=== PATIENT | male | born 1955 | race Hispanic/Latino ===

== ENCOUNTER → 2020-01-12 | Outpatient (CLI) | payer OTHER, MEDICARE ==
[~2020-01-12] MED LIST: GLIM4TAB36 PO; METF-527 PO; REGADENOSON 0.4 MG/5 ML PF SYG IVP SCH
== END | disposition home or self-care (01) ==
LOC: SHCH 08:09
PROVIDERS: ATTEND Internal Medicine Cardiovascular Disease
DX: R06.09 Other forms of dyspnea (principal)
CPT/HCPCS: 78452; 93017; 96374; A9500 ×2; J2785

== ENCOUNTER → 2020-01-13 | Outpatient (CLI) | payer OTHER, MEDICARE ==
[~2020-01-13] MED LIST changes: -REGADENOSON 0.4 MG/5 ML PF SYG IVP SCH
== END | disposition home or self-care (01) ==
LOC: SHCH 10:37
PROVIDERS: ATTEND Internal Medicine Cardiovascular Disease
DX: R06.09 Other forms of dyspnea (principal)
CPT/HCPCS: 93306; 93356

== ENCOUNTER 2021-12-31 15:01 | Inpatient (IN) | payer OTHER, MEDICARE ==
[~2021-12-31] VITALS: Ht 170.2 cm; Wt 84.0 kg
[2021-12-31] VITALS (18 sets, daily range): BP systolic 136–179; BP diastolic 73–121
[2021-12-31 15:59] LABS: BASOPHILS % (AUTO) 0.4 % (0.0-5.0); EOSINOPHILS % (AUTO) 0.6 % (0.0-8.0); HEMATOCRIT 31.7 % (42-54); LYMPHOCYTES % (AUTO) 8.5 % (21.0-51.0); MEAN CORPUSCULAR HGB CONC 33.4 g/dL (32.0-36.0); MEAN CORPUSCULAR VOLUME 83.6 fL (79-99); MONOCYTES % (AUTO) 7.4 % (3.0-13.0); NEUTROPHILS % (AUTO) 82.4 % (40.0-77.0); PLATELET COUNT (AUTO) 348 K/uL (130-400); RED BLOOD CELL COUNT(AUTO) 3.79 MIL/uL (4.50-6.20); RED CELL DISTRIBUTION WIDTH 12.9 % (11.0-15.5); WHITE BLOOD COUNT (AUTO) 10.9 K/uL (4.8-10.8)
[2021-12-31 16:12] LABS: INR 0.93 (0.85-1.15); PROTHROMBIN TIME 10.2 SEC (9.6-11.6)
[2021-12-31 16:13] LABS: PARTIAL THROMBOPLASTIN TIME 27.6 SEC (26.3-35.5)
[2021-12-31] MEDS ORDERED: ZOSYN 3.375GM+NS 50ML 50 ML ONE (16:32)
[2021-12-31 16:33] LABS: ALBUMIN 3.2 g/dL (3.5-5.0); BILIRUBIN,TOTAL 0.4 mg/dL (0.2-1.0); CREATININE 1.8 mg/dL (0.5-1.5); TOTAL PROTEIN, SERUM 9.2 g/dL (6.0-8.3)
[2021-12-31] MEDS ORDERED: VANCOMYCIN 1G/250ML KIT 250 ML IV ONE (16:33)
[2021-12-31] MEDS ORDERED: 0.9%NACL 1000ML 1,000 ML IV ONE (16:36)
[2021-12-31] MEDS ORDERED: INSULIN HUMULIN R 100 UNIT/ML 3ML ONE (16:37)
[2021-12-31] MEDS: 0.9%NACL 1000ML 1,000 ML IV SCH ×2 (16:46→23:34)
[2021-12-31] MEDS: INSULIN HUMULIN R 100 UNIT/ML 3ML IV SCH ×2 (16:46→17:11)
[2021-12-31] MEDS ORDERED: VANCOMYCIN 1G VIAL IVPB ONE (17:00)
[2021-12-31] MEDS ORDERED: ZOSYN 3.375GM +NS 50ML IV SCH (17:00)
[2021-12-31] MEDS: VANCOMYCIN 500MG+NS 100ML 100 ML IV SCH (18:00)
[2021-12-31] MEDS ORDERED: RENAL DOSE IV SCH (18:00)
[2021-12-31] MEDS ORDERED: CEFEPIME HCL 2 GM VIAL IVP SCH (18:00)
[2021-12-31] MEDS ORDERED: VANCOMYCIN PROTOCOL PER PHARMACY IV SCH (18:30)
[2021-12-31] MEDS ORDERED: GUAIFENESIN-DM 200/20 MG 10 ML PO PRN (18:30)
[2021-12-31] MEDS ORDERED: ZOLPIDEM TARTRATE 5 MG TAB PO PRN (18:30)
[2021-12-31] MEDS ORDERED: NITROGLYCERIN 0.4 MG SL TAB SL PRN (18:30)
[2021-12-31] MEDS ORDERED: MAG/ALUM/SIMETH 30 ML UDCUP PO PRN (18:30)
[2021-12-31] MEDS ORDERED: ACETAMINOPHEN 325 MG TAB PO PRN ×2 (18:30)
[2021-12-31] MEDS ORDERED: BUPIVACAINE/PF 0.5% 30ML VIAL ONE (19:06)
[2021-12-31] MEDS ORDERED: LIDOCAINE HCL 1% MDV 50ML VIAL ONE (19:06)
[2021-12-31] MEDS ORDERED: FENTANYL CITRATE PF 50 MCG/1 ML 2ML VIAL ONE ×2 (19:23→19:36)
[2021-12-31] MEDS ORDERED: MIDAZOLAM HCL 1 MG/ML 2ML VIAL ONE (19:23)
[2021-12-31] MEDS ORDERED: PROPOFOL 1000 MG/100 ML 100 ML IV ONE (19:37)
[2021-12-31] MEDS ORDERED: ONDANSETRON 4MG INJ ONE (19:41)
[2021-12-31] MEDS ORDERED: LABETALOL 20MG SYG IV ONE (21:34)
[2021-12-31] MEDS ORDERED: LABETALOL 20MG SYG IV PRN (23:30)
[2021-12-31] MEDS ORDERED: HYDRALAZINE HCL 10 MG TABLET PO PRN (23:30)
[2021-12-31] MEDS: HYDROMORPHONE 0.5 MG SYG (0.5MG/0.5ML) IV PRN (23:43)
[2022-01-01] VITALS (9 sets, daily range): BP systolic 134–168; BP diastolic 71–87
[2022-01-01] MEDS ORDERED: DEXTROSE 50%-WATER 50 ML DISP.SYRIN IV PRN
[2022-01-01] MEDS ORDERED: GLUCAGON 1MG KIT 1 MG ML IM PRN
[2022-01-01] MEDS: HYDROMORPHONE 0.5 MG SYG (0.5MG/0.5ML) IV PRN ×2 (04:38→09:27)
[2022-01-01 04:48] LABS: BASOPHILS % (AUTO) 0.2 % (0.0-5.0); EOSINOPHILS % (AUTO) 0.7 % (0.0-8.0); HEMATOCRIT 27.1 % (42-54); LYMPHOCYTES % (AUTO) 10.7 % (21.0-51.0); MEAN CORPUSCULAR HEMOGLOBIN 27.6 pg (27.0-33.0); MEAN CORPUSCULAR HGB CONC 32.5 g/dL (32.0-36.0); MONOCYTES % (AUTO) 7.1 % (3.0-13.0); NEUTROPHILS % (AUTO) 80.4 % (40.0-77.0); PLATELET COUNT (AUTO) 283 K/uL (130-400); RED BLOOD CELL COUNT(AUTO) 3.19 MIL/uL (4.50-6.20); RED CELL DISTRIBUTION WIDTH 12.9 % (11.0-15.5)
[2022-01-01 04:59] LABS: INR 0.96 (0.85-1.15); PROTHROMBIN TIME 10.5 SEC (9.6-11.6)
[2022-01-01 05:01] LABS: PARTIAL THROMBOPLASTIN TIME 29.4 SEC (26.3-35.5)
[2022-01-01 05:06] LABS: ALBUMIN 2.4 g/dL (3.5-5.0); BILIRUBIN,TOTAL 0.3 mg/dL (0.2-1.0); CREATININE 1.4 mg/dL (0.5-1.5); MAGNESIUM 2.2 mg/dL (1.80-2.40); PHOSPHORUS 3.2 mg/dL (2.5-4.9); POTASSIUM 4.3 mmol/L (3.5-5.1); TOTAL PROTEIN, SERUM 7.2 g/dL (6.0-8.3)
[2022-01-01] MEDS: 0.9%NACL 1000ML 1,000 ML IV SCH ×3 (05:30→19:40)
[2022-01-01] MEDS: VANCOMYCIN 500MG+NS 100ML 100 ML IV SCH ×2 (05:30→17:18)
[2022-01-01] MEDS: INSULIN HUMULIN R 100 UNIT/ML 3ML SQ SCH ×4 (06:15→20:57)
[2022-01-01] MEDS: ENOXAPARIN SODIUM 40 MG/0.4 ML SYRINGE SQ SCH (09:26)
[2022-01-01] MEDS: FAMOTIDINE 20MG VIAL IV SCH (09:26)
[2022-01-01] MEDS: LISINOPRIL 10 MG TABLET PO SCH (09:26)
[2022-01-01] MEDS: ONDANSETRON 4MG INJ IV PRN (11:45)
[2022-01-01] MEDS: CEFEPIME HCL 2 GM VIAL IVP SCH ×2 (11:45→23:04)
[2022-01-01] MEDS: ACETAMINOPHEN 325 MG TAB PO PRN (11:46)
[2022-01-01] MEDS ORDERED: DIPH,PERTUSS(ACELL),TET VAC/PF 0.5 ML VIAL IM ONE (14:00)
[2022-01-01] MEDS: ACETAMINOPHEN WITH CODEINE 1 TAB TAB PO PRN ×2 (15:18→21:20)
[2022-01-01] MEDS: ATORVASTATIN 20 MG TABLET PO SCH (21:07)
[2022-01-02] VITALS (8 sets, daily range): BP systolic 149–178; BP diastolic 73–89
[2022-01-02] MEDS: 0.9%NACL 1000ML 1,000 ML IV SCH ×4 (02:20→23:44)
[2022-01-02 05:06] LABS: BASOPHILS % (AUTO) 0.4 % (0.0-5.0); EOSINOPHILS % (AUTO) 1.8 % (0.0-8.0); HEMATOCRIT 23.9 % (42-54); LYMPHOCYTES % (AUTO) 11.8 % (21.0-51.0); MEAN CORPUSCULAR HEMOGLOBIN 27.7 pg (27.0-33.0); MEAN CORPUSCULAR HGB CONC 33.1 g/dL (32.0-36.0); MEAN CORPUSCULAR VOLUME 83.9 fL (79-99); MONOCYTES % (AUTO) 7.6 % (3.0-13.0); NEUTROPHILS % (AUTO) 77.8 % (40.0-77.0); PLATELET COUNT (AUTO) 276 K/uL (130-400); RED BLOOD CELL COUNT(AUTO) 2.85 MIL/uL (4.50-6.20); RED CELL DISTRIBUTION WIDTH 13.1 % (11.0-15.5); WHITE BLOOD COUNT (AUTO) 8.6 K/uL (4.8-10.8)
[2022-01-02 05:21] LABS: ALBUMIN 2.1 g/dL (3.5-5.0); BILIRUBIN,TOTAL 0.6 mg/dL (0.2-1.0); CREATININE 1.3 mg/dL (0.5-1.5); MAGNESIUM 1.8 mg/dL (1.80-2.40); PHOSPHORUS 2.9 mg/dL (2.5-4.9); TOTAL PROTEIN, SERUM 6.9 g/dL (6.0-8.3)
[2022-01-02] MEDS: VANCOMYCIN 500MG+NS 100ML 100 ML IV SCH ×2 (05:34→17:30)
[2022-01-02] MEDS: INSULIN HUMULIN R 100 UNIT/ML 3ML SQ SCH ×4 (06:34→20:10)
[2022-01-02] MEDS: LISINOPRIL 10 MG TABLET PO SCH (09:01)
[2022-01-02] MEDS: ASPIRIN 81MG CHEW TAB PO SCH (09:01)
[2022-01-02] MEDS: FAMOTIDINE 20MG VIAL IV SCH (09:01)
[2022-01-02] MEDS: ENOXAPARIN SODIUM 40 MG/0.4 ML SYRINGE SQ SCH (09:02)
[2022-01-02] MEDS: ACETAMINOPHEN WITH CODEINE 1 TAB TAB PO PRN (09:02)
[2022-01-02] MEDS: CEFEPIME HCL 2 GM VIAL IVP SCH ×2 (12:05→23:44)
[2022-01-02] MEDS: ONDANSETRON 4MG INJ IV PRN (12:13)
[2022-01-02] MEDS: ATORVASTATIN 20 MG TABLET PO SCH (20:09)
[2022-01-03] VITALS (15 sets, daily range): BP systolic 125–159; BP diastolic 67–85
[2022-01-03 04:49] LABS: BASOPHILS % (AUTO) 0.5 % (0.0-5.0); EOSINOPHILS % (AUTO) 1.6 % (0.0-8.0); HEMATOCRIT 25.9 % (42-54); LYMPHOCYTES % (AUTO) 12.5 % (21.0-51.0); MEAN CORPUSCULAR HEMOGLOBIN 27.1 pg (27.0-33.0); MEAN CORPUSCULAR VOLUME 84.6 fL (79-99); MONOCYTES % (AUTO) 7.2 % (3.0-13.0); NEUTROPHILS % (AUTO) 77.5 % (40.0-77.0); PLATELET COUNT (AUTO) 342 K/uL (130-400); RED BLOOD CELL COUNT(AUTO) 3.06 MIL/uL (4.50-6.20); RED CELL DISTRIBUTION WIDTH 13.1 % (11.0-15.5); WHITE BLOOD COUNT (AUTO) 8.8 K/uL (4.8-10.8)
[2022-01-03 04:59] LABS: ALBUMIN 2.2 g/dL (3.5-5.0); BILIRUBIN,TOTAL 0.3 mg/dL (0.2-1.0); CREATININE 1.4 mg/dL (0.5-1.5); MAGNESIUM 2.3 mg/dL (1.80-2.40); PHOSPHORUS 2.9 mg/dL (2.5-4.9); POTASSIUM 4.5 mmol/L (3.5-5.1); TOTAL PROTEIN, SERUM 7.3 g/dL (6.0-8.3)
[2022-01-03 05:06] LABS: INR 0.96 (0.85-1.15); PROTHROMBIN TIME 10.5 SEC (9.6-11.6)
[2022-01-03 05:07] LABS: PARTIAL THROMBOPLASTIN TIME 32.1 SEC (26.3-35.5)
[2022-01-03] MEDS: INSULIN HUMULIN R 100 UNIT/ML 3ML SQ SCH ×4 (07:30→21:33)
[2022-01-03] MEDS: LISINOPRIL 10 MG TABLET PO SCH (09:00)
[2022-01-03] MEDS: ASPIRIN 81MG CHEW TAB PO SCH (09:00)
[2022-01-03] MEDS: FAMOTIDINE 20MG VIAL IV SCH (09:00)
[2022-01-03] MEDS: ENOXAPARIN SODIUM 40 MG/0.4 ML SYRINGE SQ SCH (09:00)
[2022-01-03] MEDS: VANCOMYCIN 500MG+NS 100ML 100 ML IV SCH ×2 (10:10→18:16)
[2022-01-03] MEDS: CEFEPIME HCL 2 GM VIAL IVP SCH ×2 (10:54→23:11)
[2022-01-03] MEDS ORDERED: NICARDIPINE 25MG INJ IV ONE (11:19)
[2022-01-03] MEDS ORDERED: IODIXANOL 320 MG/ML 100 ML VIAL ONE (11:19)
[2022-01-03] MEDS ORDERED: LIDOCAINE HCL 400MG/20ML VIAL ONE (11:19)
[2022-01-03] MEDS ORDERED: HEPARIN 10,000 UNIT/10ML (1,000 UNIT/ML) VIAL ONE ×2 (11:19→13:03)
[2022-01-03] MEDS ORDERED: NITROGLYCERIN 50MG VIAL ONE (11:19)
[2022-01-03] MEDS ORDERED: MIDAZOLAM HCL 1 MG/ML 2ML VIAL ONE ×2 (11:34→13:01)
[2022-01-03] MEDS ORDERED: FENTANYL CITRATE PF 50 MCG/1 ML 2ML VIAL ONE ×2 (11:36→13:02)
[2022-01-03] MEDS ORDERED: CLOPIDOGREL 300MG TAB ONE (12:07)
[2022-01-03] MEDS ORDERED: ASPIRIN 325MG EC TAB PO ONE (12:07)
[2022-01-03] MEDS ORDERED: LABETALOL 20MG SYG IV ONE (12:21)
[2022-01-03] MEDS ORDERED: HYDRALAZINE 20MG/ML VIAL ONE ×2 (12:46→12:47)
[2022-01-03] MEDS: 0.9%NACL 1000ML 1,000 ML IV SCH (14:00)
[2022-01-03] MEDS ORDERED: GLUCAGON 1MG KIT 1 MG ML IM PRN (14:30)
[2022-01-03] MEDS ORDERED: 0.9%NACL 1000ML 1,000 ML IV SCH (14:30)
[2022-01-03] MEDS ORDERED: DEXTROSE 50%-WATER 50 ML DISP.SYRIN IV PRN (14:30)
[2022-01-03] MEDS: ONDANSETRON 4MG INJ IV PRN (18:14)
[2022-01-03] MEDS: ATORVASTATIN 20 MG TABLET PO SCH (21:32)
[2022-01-03] MEDS: ACETAMINOPHEN 325 MG TAB PO PRN (21:42)
[2022-01-04 03:32] VITALS: BP 148/82
[2022-01-04 05:40] LABS: BASOPHILS % (AUTO) 0.1 % (0.0-5.0); EOSINOPHILS % (AUTO) 1.3 % (0.0-8.0); HEMATOCRIT 24.1 % (42-54); LYMPHOCYTES % (AUTO) 13.5 % (21.0-51.0); MEAN CORPUSCULAR HEMOGLOBIN 28.2 pg (27.0-33.0); MEAN CORPUSCULAR HGB CONC 33.6 g/dL (32.0-36.0); MONOCYTES % (AUTO) 8.8 % (3.0-13.0); NEUTROPHILS % (AUTO) 75.6 % (40.0-77.0); PLATELET COUNT (AUTO) 355 K/uL (130-400); RED BLOOD CELL COUNT(AUTO) 2.87 MIL/uL (4.50-6.20); RED CELL DISTRIBUTION WIDTH 13.4 % (11.0-15.5); WHITE BLOOD COUNT (AUTO) 6.8 K/uL (4.8-10.8)
[2022-01-04 05:54] LABS: ALBUMIN 2.1 g/dL (3.5-5.0); BILIRUBIN,TOTAL 0.3 mg/dL (0.2-1.0); CREATININE 1.4 mg/dL (0.5-1.5); TOTAL PROTEIN, SERUM 7.2 g/dL (6.0-8.3)
[2022-01-04] MEDS: ACETAMINOPHEN 325 MG TAB PO PRN (06:07)
[2022-01-04] MEDS: VANCOMYCIN 500MG+NS 100ML 100 ML IV SCH ×2 (06:07→17:49)
[2022-01-04] MEDS: INSULIN HUMULIN R 100 UNIT/ML 3ML SQ SCH ×4 (07:30→21:38)
[2022-01-04 08:00] VITALS: BP 153/82
[2022-01-04] MEDS: ASPIRIN 81MG CHEW TAB PO SCH (09:24)
[2022-01-04] MEDS: CLOPIDOGREL 75MG TAB PO SCH (09:24)
[2022-01-04] MEDS: FAMOTIDINE 20MG VIAL IV SCH (09:26)
[2022-01-04] MEDS: LISINOPRIL 10 MG TABLET PO SCH (09:26)
[2022-01-04] MEDS: ENOXAPARIN SODIUM 40 MG/0.4 ML SYRINGE SQ SCH (09:27)
[2022-01-04] MEDS: CEFEPIME HCL 2 GM VIAL IVP SCH ×2 (11:21→23:23)
[2022-01-04 11:31] VITALS: BP 149/83
[2022-01-04 16:00] VITALS: BP 172/100
[2022-01-04] MEDS: ONDANSETRON 4MG INJ IV PRN (16:31)
[2022-01-04] MEDS ORDERED: 0.9% NACL 250ML 250 ML ONE (17:46)
[2022-01-04 20:00] VITALS: BP 156/82
[2022-01-04] MEDS: ATORVASTATIN 20 MG TABLET PO SCH (21:35)
[2022-01-04] MEDS: LACTULOSE 20 GM/30 ML UDCUP PO PRN (21:35)
[2022-01-04] MEDS: ACETAMINOPHEN WITH CODEINE 1 TAB TAB PO PRN (21:45)
[2022-01-05] VITALS: BP 156/92
[2022-01-05 04:00] VITALS: BP 150/84
[2022-01-05 05:03] LABS: BASOPHILS % (AUTO) 0.3 % (0.0-5.0); EOSINOPHILS % (AUTO) 4.7 % (0.0-8.0); HEMATOCRIT 22.2 % (42-54); LYMPHOCYTES % (AUTO) 18.6 % (21.0-51.0); MEAN CORPUSCULAR HEMOGLOBIN 27.2 pg (27.0-33.0); MEAN CORPUSCULAR VOLUME 85.1 fL (79-99); MONOCYTES % (AUTO) 11.6 % (3.0-13.0); PLATELET COUNT (AUTO) 336 K/uL (130-400); RED BLOOD CELL COUNT(AUTO) 2.61 MIL/uL (4.50-6.20); RED CELL DISTRIBUTION WIDTH 13.3 % (11.0-15.5); WHITE BLOOD COUNT (AUTO) 6.2 K/uL (4.8-10.8)
[2022-01-05 05:16] LABS: ALBUMIN 1.9 g/dL (3.5-5.0); BILIRUBIN,TOTAL 0.2 mg/dL (0.2-1.0); CREATININE 1.5 mg/dL (0.5-1.5); POTASSIUM 3.5 mmol/L (3.5-5.1); TOTAL PROTEIN, SERUM 6.4 g/dL (6.0-8.3)
[2022-01-05] MEDS ORDERED: 0.9% NACL 250ML 250 ML ONE (06:04)
[2022-01-05] MEDS: VANCOMYCIN 500MG+NS 100ML 100 ML IV SCH (06:13)
[2022-01-05 07:30] VITALS: BP 163/94
[2022-01-05] MEDS: INSULIN HUMULIN R 100 UNIT/ML 3ML SQ SCH ×2 (07:30→11:43)
[2022-01-05] MEDS: LACTULOSE 20 GM/30 ML UDCUP PO PRN (07:53)
[2022-01-05] MEDS: LISINOPRIL 10 MG TABLET PO SCH (08:57)
[2022-01-05] MEDS: FAMOTIDINE 20MG VIAL IV SCH (08:57)
[2022-01-05] MEDS: CLOPIDOGREL 75MG TAB PO SCH (08:58)
[2022-01-05] MEDS: ASPIRIN 81MG CHEW TAB PO SCH (08:58)
[2022-01-05] MEDS: ENOXAPARIN SODIUM 40 MG/0.4 ML SYRINGE SQ SCH ×2 (08:58→09:00)
[2022-01-05] MEDS ORDERED: SODIUM CHLORIDE 1,000 MG TAB PO SCH (09:30)
[2022-01-05 09:37] LABS: HEMATOCRIT 23.7 % (42-54)
[2022-01-05 11:00] VITALS: BP 171/96
[2022-01-05] MEDS: CEFEPIME HCL 2 GM VIAL IVP SCH (11:57)
== END 2022-01-05 15:00 | DRG 271 ==
LOC: EDH 15:01 → OBSVTOIN 17:40 → EDHIP 17:40 → 4BH 22:22
PROVIDERS: ADMIT Internal Medicine Critical Care Medicine; ATTEND Internal Medicine Critical Care Medicine
PROC: 0HBRXZZ Excision of Toe Nail, External Approach (ICD-10-PCS; 2021-12-31)
PROC: 0HBRXZZ Excision of Toe Nail, External Approach (ICD-10-PCS; 2021-12-31)
PROC: 0HBRXZZ Excision of Toe Nail, External Approach (ICD-10-PCS; 2021-12-31)
PROC: 0HBRXZZ Excision of Toe Nail, External Approach (ICD-10-PCS; 2021-12-31)
PROC: 0HBRXZZ Excision of Toe Nail, External Approach (ICD-10-PCS; 2021-12-31)
PROC: 0HBRXZZ Excision of Toe Nail, External Approach (ICD-10-PCS; 2021-12-31)
PROC: 0HBRXZZ Excision of Toe Nail, External Approach (ICD-10-PCS; 2021-12-31)
PROC: 0HBRXZZ Excision of Toe Nail, External Approach (ICD-10-PCS; 2021-12-31)
PROC: 0HBRXZZ Excision of Toe Nail, External Approach (ICD-10-PCS; 2021-12-31)
PROC: 0HBRXZZ Excision of Toe Nail, External Approach (ICD-10-PCS; 2021-12-31)
PROC: 0SBP0ZZ Excision of Right Toe Phalangeal Joint, Open Approach (ICD-10-PCS; 2021-12-31)
PROC: 0Y6T0Z0 Detachment at Right 3rd Toe, Complete, Open Approach (ICD-10-PCS; principal; 2021-12-31 19:59)
PROC: 04CP3ZZ Extirpation of Matter from Right Anterior Tibial Artery, Percutaneous Approach (ICD-10-PCS; 2022-01-03)
PROC: 047P3ZZ Dilation of Right Anterior Tibial Artery, Percutaneous Approach (ICD-10-PCS; 2022-01-03)
PROC: B4101ZZ Fluoroscopy of Abdominal Aorta using Low Osmolar Contrast (ICD-10-PCS; 2022-01-03)
PROC: B41F1ZZ Fluoroscopy of Right Lower Extremity Arteries using Low Osmolar Contrast (ICD-10-PCS; 2022-01-03)
PROC: B41G1ZZ Fluoroscopy of Left Lower Extremity Arteries using Low Osmolar Contrast (ICD-10-PCS; 2022-01-03)
DX: E11.52 Type 2 diabetes mellitus with diabetic peripheral angiopathy with gangrene (principal); E87.1 Hypo-osmolality and hyponatremia; L03.115 Cellulitis of right lower limb; L03.116 Cellulitis of left lower limb; I96 Gangrene, not elsewhere classified; M86.8X7 Other osteomyelitis, ankle and foot; E11.621 Type 2 diabetes mellitus with foot ulcer; E11.69 Type 2 diabetes mellitus with other specified complication; I12.9 Hypertensive chronic kidney disease with stage 1 through stage 4 chronic kidney disease, or unspecified chronic kidney disease; Z20.822 Contact with and (suspected) exposure to COVID-19; E11.65 Type 2 diabetes mellitus with hyperglycemia; D64.9 Anemia, unspecified; E87.8 Other disorders of electrolyte and fluid balance, not elsewhere classified; Z83.3 Family history of diabetes mellitus; Z79.899 Other long term (current) drug therapy; E78.5 Hyperlipidemia, unspecified; N18.30 Chronic kidney disease, stage 3 unspecified; E11.22 Type 2 diabetes mellitus with diabetic chronic kidney disease; E66.9 Obesity, unspecified; L97.529 Non-pressure chronic ulcer of other part of left foot with unspecified severity; L97.519 Non-pressure chronic ulcer of other part of right foot with unspecified severity; L60.2 Onychogryphosis; Z79.82 Long term (current) use of aspirin; B35.1 Tinea unguium; Z68.29 Body mass index [BMI] 29.0-29.9, adult
CPT/HCPCS: 36415; 37229; 71045; 73630; 73718; 75716; 75774; 80053; 80202; 82948; 83605; 83735; 84100; 84145; 84484; 85014; 85018; 85025; 85347; 85610; 85730; 87040; 87070; 87076; 87077; 87186; 87205; 87635; 90715; 93005; 93925; 97039; 99156; 99157; C1724; C1769; C1893; C1894; G0378; J0360; J0692; J1170; J1644; J1650; J1815; J2250; J2405; J2543; J2704; J3010; J3370; J3490; J7030; J7050; J7120; Q9967